=== PATIENT | female | born 1980 | race Caucasian/White ===

== ENCOUNTER 2018-05-05 19:42 | Observation (INO) | payer BC ==
[2018-05-05] MEDS ORDERED: Ketorolac Tromethamine 30 MG/ML VIAL IVP PRN (21:07)
[2018-05-05] MEDS ORDERED: Acetaminophen 1,000 MG in Premix Bag 1 BAG IVPB PRN (21:07)
--- NOTE | 2018-05-05 21:09 | ULT ---
RIGHT UPPER QUADRANT ULTRASOUND: 05/05/2018 HISTORY: Right upper quadrant pain. COMPARISON: None. TECHNIQUE: Multiplanar pantoja-scale sonographic imaging of the right upper quadrant is provided. FINDINGS: The egg tester reports a positive Alfonso sign. There is a prominent shadowing stone within the gall bladder lumen. The gallbladder wall is thickened, measuring approximately 5 mm. Findings are suspic ious for acute cholecystitis in the proper clinical setting. The imaged pancreas is unremarkable. T he body and tail are obscured by bowel gas. No focal liver lesion or intrahepatic biliary dilatation is noted. The common bile duct measures 3 mm, within normal limits. The right kidney measures 10.3 cm in craniocaudal dimension and demonstrates no stone, hydronephrosis , or mass lesion. There is a small cyst, measuring in the 1 cm range, within the inferior aspect of the right kidney. IMPRESSION: Positive sonographic Alfonso sign with cholelithiasis and gallbladder wall thickening, suspicious for acute cholecystitis. POS: [facility]
[2018-05-05] MEDS ORDERED: MEROPENEM 1 GM/50 ML 1 GM in Premix Bag 1 BAG IVPB SCH (21:15)
[2018-05-05 21:20] LABS: INR-International Normal Ratio 0.9; PTT 26.5 SEC (22.9-36.1); Prothrombin Time 12.6 SEC (12.0-14.7)
--- NOTE | 2018-05-05 21:52 | RAD ---
PORTABLE FRONTAL CHEST RADIOGRAPH: 05/05/2018 HISTORY: Abdominal pain. Preoperative patient. COMPARISON: 04/19/2014 FINDINGS: The lungs are clear. The heart and mediastinal contour is unremarkable. IMPRESSION: No acute findings. POS: [facility]
[2018-05-05] MEDS ORDERED: Scopolamine 1.5 mg/72 hour Patch TD SCH (22:00)
[2018-05-05] MEDS ORDERED: Enoxaparin Sodium 40 MG/0.4 ML SYRINGE SC SCH (22:00)
[2018-05-05] MEDS: Lactated Ringer's 1,000 ML IV SCH (23:41)
[2018-05-06 00:43] VITALS: BMI 41.4
[2018-05-06] MEDS: Lactated Ringer's 1,000 ML IV SCH ×3 (05:29→14:31)
[2018-05-06 07:36] VITALS: BP 107/73; TEMP 98.9
--- NOTE | 2018-05-06 08:00 | HP ---
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 Ultrasound in the emerge ncy room reveals gallstones with normal bile duct caliber. Chest x-ray is normal. Bile duct is 3 mm . The patient's liver function tests are normal. BUN and creatinine, sodium are normal. White coun t 10, hemoglobin 14. ALLERGIES: None. SOCIAL HISTORY: Tobacco 1/2 pack per day to 1 pack per day. Alcohol, rarely socially. MEDICATIONS: None. PAST SURGICAL HISTORY: Tubal ligation. PAST MEDICAL HISTORY: Noncontributory. REVIEW OF SYSTEMS: Ten point noncontributory. Her is present during the interview. PHYSICAL EXAMINATION: VITAL SIGNS: 5 foot 5, 249 pounds, 41 BMI, 98.9 degrees, 70, 107/73. HEENT: Unremarkable. LUNGS: Clear to auscultation. CARDIAC: Regular rate and rhythm without murmur or gallop. ABDOMEN: Soft, tenderness in right upper quadrant. EXTREMITIES: Unremarkable. ASSESSMENT AND PLAN: 1. Cholecystitis and cholelithiasis. I have recommended laparoscopic video cholecystectomy. Risk o f infection, bleeding, visceral and biliary injury discussed, she consents. Questions answered. 2. Tobacco abuse.
[2018-05-06] MEDS ORDERED: Bupivacaine HCl 0.5%/Epinephrine 1:200,000/PF 30 ml Vial ONE (13:21)
[2018-05-06] MEDS ORDERED: Fentanyl 100 MCG/2 ML VIAL ONE ×2 (13:27→14:30)
[2018-05-06] MEDS ORDERED: Ondansetron HCl/PF 4 MG/2 ML Vial IVP PRN (14:26)
[2018-05-06] MEDS ORDERED: Promethazine HCl 25 MG/ML VIAL IM PRN (14:26)
[2018-05-06] MEDS ORDERED: Promethazine HCl 25 MG/ML VIAL SLOW IVP PRN (14:26)
[2018-05-06] MEDS ORDERED: Promethazine HCl 25 MG/ML VIAL ONE (14:30)
[2018-05-06] MEDS ORDERED: Acetaminophen 500 MG TAB PO PRN (14:32)
[2018-05-06] MEDS ORDERED: Ibuprofen 600 MG TAB PO PRN (14:32)
[2018-05-06] MEDS ORDERED: traMADol HCl 50 MG TAB PO PRN ×2 (14:32)
[2018-05-06] MEDS ORDERED: Ondansetron PF 4 MG/2 ML Vial ONE (16:42)
[2018-05-06] MEDS ORDERED: PROPOFOL 200 MG/20 ML VIAL ONE (16:42)
[2018-05-06] MEDS ORDERED: Glycopyrrolate 0.2 MG/ML 5 ML SYRINGE ONE (16:42)
[2018-05-06] MEDS ORDERED: PHENYLEPHRINE-NS 100 MCG/ML 10 ML SYRINGE ONE (16:42)
[2018-05-06] MEDS ORDERED: Ketorolac Tromethamine 30 MG/ML VIAL ONE (16:42)
[2018-05-06] MEDS ORDERED: Lidocaine 1% PF 5 ML VIAL ONE (16:42)
--- NOTE | 2018-05-07 07:51 | OP ---
DATE OF PROCEDURE: 05/06/2018 PREOPERATIVE DIAGNOSES: Cholecystitis, cholelithiasis, obesity. POSTOPERATIVE DIAGNOSES: Cholecystitis, cholelithiasis, obesity. PROCEDURE: Laparoscopic video cholecystectomy. SURGEON: Klaus Peralta M.D. ANESTHESIA: General. Local 0.5% Marcaine with epinephrine 30 mL. PROCEDURE IN DETAIL: The patient was taken to the operating room where under general anesthesia the abdomen was prepared with ChloraPrep, draped in routine fashion and 0.5% Marcaine with epinephrine lo pedro anesthetic infiltrated into skin and subcutaneous tissue about each port site. Infraumbilical in cision made. Pneumoperitoneum to 15 mm obtained with the Veress needle, replacing it with a 5 port l aparoscope inserted. Right subxiphoid incision made and 11 port placed. Right subcostal incision ma de mid clavicular anterior axillary lines and 5 ports placed. Liver was slightly fatty, otherwise no rmal. Gallbladder was acutely inflamed and very fatty. Fundus grasped, reflected cephalad. Infundi bulum grasped and reflected. Cystic artery and duct dissected free. Critical view obtained and cyst ic artery and duct doubly clipped proximally, divided, and gallbladder dissected free from liver bed obtaining good hemostasis prior to division of the final peritoneal attachments. Gallbladder and con tents and large stone removed and submitted to Pathology. Hemostasis gained with the cautery. Irrig ant and pneumoperitoneum evacuated. All this is moving all skin incisions approximated with interrup shyam subdermal 4-0 Monocryl and DermaGlue applied.
--- NOTE | 2018-05-07 07:53 | DIS ---
DATE OF ADMISSION: 05/05/2018 DATE OF DISCHARGE: 05/06/2018 DISCHARGE DIAGNOSES: 1. Obesity. 2. Cholecystitis and cholelithiasis 3. Tobacco use. PROCEDURE: Laparoscopic video cholecystectomy. HISTORY: A 38-year-old female who presented to emergency room with acute cholecystitis, admitted and received intravenous fluids and antibiotics, underwent laparoscopic video cholecystectomy. Sent vinay e with Motrin, Tylenol and Ultram p.r.n. pain. Follow up in my office in 2-3 weeks. Diet and activi ty as tolerated. No lifting restrictions.
--- NOTE | 2018-05-10 20:20 | EKG ---
Test Reason : SURGERY Blood Pressure : / mmHG Vent. Rate : 069 BPM Atrial Rate : 069 BPM P-R Int : 120 ms QRS Dur : 078 ms QT Int : 412 ms P-R-T Axes : 001 011 029 degrees QTc Int : 441 ms Normal sinus rhythm Normal ECG Confirmed by SHIRLEY TILLEY, RUTH ([id number]), city editor JOHANNY ACOSTA ([id number]) on 05/10/2018 8:20:02 PM Referred By: Confirmed By:RUTH WATSON MD
== END 2018-05-06 20:09 | disposition home or self-care (01) ==
LOC: ERS 19:42 → SURG A 20:47
PROVIDERS: ADMIT Specialist; ATTEND Specialist
PROC: 0FT44ZZ Resection of Gallbladder, Percutaneous Endoscopic Approach (ICD-10-PCS; principal; 2018-05-06)
DX: K80.12 Calculus of gallbladder with acute and chronic cholecystitis without obstruction (principal); F17.210 Nicotine dependence, cigarettes, uncomplicated; E66.9 Obesity, unspecified; Z68.41 Body mass index [BMI] 40.0-44.9, adult
CPT/HCPCS: 36415; 71045; 76705; 85610; 85730; 88304; 93005; 96361; 96365; 96367; G0378; J0131; J0670; J1650; J1885; J1956; J2001; J2185; J2405; J2550; J2704; J3010

== ENCOUNTER 2023-06-17 19:05 | Emergency (ER) | payer SELFPAY ==
[2023-06-17 21:09] LABS: SARS-CoV-2 NAA Rapid Test Not Detected (NotDetected)
== END 2023-06-17 21:27 | disposition home or self-care (01) ==
LOC: ERS 19:05
DX: J18.9 Pneumonia, unspecified organism (principal); F17.210 Nicotine dependence, cigarettes, uncomplicated
CPT/HCPCS: 71045